=== PATIENT | male | born 1990 | race African-American/Black ===

== ENCOUNTER 2018-03-26 16:20 | Emergency (ER) | payer MEDICAID ==
[~2018-03-26] VITALS: Ht 188 cm; Wt 81.8 kg
[2018-03-26] MEDS ORDERED: SILVADENE1 % EX (18:04)
[2018-03-26] MEDS ORDERED: TORADOL PO (18:04)
[2018-03-26 18:52] VITALS: BP 131/81
[2018-03-26] MEDS ORDERED: no home meds (18:53)
== END 2018-03-26 18:52 | disposition home or self-care (01) ==
LOC: ED 16:20
DX: T33.831A Superficial frostbite of right toe(s), initial encounter (principal); X31.XXXA Exposure to excessive natural cold, initial encounter; Y93.01 Activity, walking, marching and hiking; Y92.410 Unspecified street and highway as the place of occurrence of the external cause